=== PATIENT | male | born 1985 | race Two or more races ===

== ENCOUNTER 2019-05-15 07:38 | Emergency (ER) | payer BC, OTHER ==
[~2019-05-15] VITALS: Ht 170.2 cm; Wt 149.7 kg
[2019-05-15] MEDS ORDERED: ACETAMINOPHEN/CODEINE#3 (300/30mg) TAB PO ONE (08:45)
[2019-05-15 09:48] VITALS: BP 144/99
== END 2019-05-15 10:00 | disposition home or self-care (01) ==
LOC: ER 07:43
DX: S50.812A Abrasion of left forearm, initial encounter (principal); M54.2 Cervicalgia; M54.5 Low back pain; R51 Headache; H53.8 Other visual disturbances; E11.9 Type 2 diabetes mellitus without complications; V43.52XA Car driver injured in collision with other type car in traffic accident, initial encounter; Y93.89 Activity, other specified; Y99.8 Other external cause status; Y92.411 Interstate highway as the place of occurrence of the external cause
CPT/HCPCS: 70450; 72125; 72131; 73090

== ENCOUNTER 2022-01-22 11:48 | Emergency (ER) | payer BC ==
[~2022-01-22] VITALS: Ht 170.2 cm; Wt 137.4 kg
[2022-01-22 12:11] VITALS: BP 133/94
[2022-01-22 13:48] LABS: Basophils # (auto) 0.2 10 ^3/uL (0-0.2); Basophils % (auto) 2.5 % (0.0-2.0); Eosinophils # (auto) 0.1 10 ^3/uL (0-0.8); Eosinophils % (auto) 1.6 % (0.0-7.0); Hemoglobin 17.4 g/dL (13.5-17.5); Lymphocytes # (auto) 3.1 10 ^3/uL (0.4-5.4); Lymphocytes % (auto) 33.8 % (10.0-50.0); Mean Corpuscular Hemoglobin 30.1 pg (28.0-32.0); Mean Corpuscular Hgb Conc. 34.1 g/dL (32.0-36.0); Mean Corpuscular Volume 88.3 fL (80.0-100.0); Monocytes # (auto) 0.6 10 ^3/uL (0-1.3); Monocytes % (auto) 7.1 % (0.0-12.0); Nucleated Red Blood Cells % 0.2 %; Red Blood Cells 5.77 10^6/uL (4.5-5.90); Red Cell Distribution Width 13.8 % (11.8-14.3); White Blood Cell 9.1 10^3/uL (4.4-10.8)
[2022-01-22 14:07] LABS: Albumin 4.3 g/dL (3.4-5.0); Calcium 9.4 mg/dL (8.5-10.1); Magnesium 2.6 mg/dL (1.6-2.6); Potassium 4.1 mmol/L (3.5-5.1)
[2022-01-22 14:11] LABS: BUN/Creatinine Ratio 19.5; Bilirubin, Total 0.5 mg/dL (0.2-1.0); Total Protein 8.3 g/dL (6.4-8.2)
[2022-01-22] MEDS ORDERED: AZIT250T9 PO (15:23)
[2022-01-22] MEDS ORDERED: DexAMETHasone SOD PHOS 10MG/1ML VIAL INJ IM ONE (16:00)
== END 2022-01-22 15:41 | disposition home or self-care (01) ==
LOC: ER 11:48
DX: R06.02 Shortness of breath (principal); E11.9 Type 2 diabetes mellitus without complications; Z20.822 Contact with and (suspected) exposure to COVID-19
CPT/HCPCS: 36415; 71045; 80053; 83735; 84484; 85025; 93005